=== PATIENT | male | born 1970 | race Two or more races ===

== ENCOUNTER 2016-11-30 14:27 | Inpatient (IN) | payer OTHER ==
[2016-11-30 16:38] VITALS: BMI 19.3
[2016-11-30] MEDS ORDERED: MAGNESIUM HYDROX 2400MG/30ML ORAL SUSPENSION 30 ML CUP PO PRN (16:41)
[2016-11-30] MEDS ORDERED: P-EPHED 60MG/TRIPROLIDI 2.5MG TABLET PO PRN (16:41)
[2016-11-30] MEDS ORDERED: chlordiazePOXIDE HCL 25 MG CAPSULE PO ONE (16:41)
[2016-11-30] MEDS ORDERED: guaiFENesin/D-METHORPHAN HB 10 ML UNIT-DOSE CUPS PO PRN (16:41)
[2016-11-30] MEDS ORDERED: MENTHOL/PHENOL 1 EACH UD MM PRN (16:41)
[2016-11-30] MEDS ORDERED: MAG HYDROX/AL HYDROX/SIMETH 30 ML UNIT-DOSE CUP PO PRN (16:41)
[2016-11-30] MEDS ORDERED: MAGNESIUM CITRATE 300 ML BOTTLE PO PRN (16:41)
[2016-11-30] MEDS ORDERED: LOPERAMIDE HCL 2 MG CAPSULE PO PRN (16:41)
[2016-11-30] MEDS ORDERED: IBUPROFEN 400 MG TABLET (FP) PO PRN (16:41)
[2016-11-30] MEDS ORDERED: ACETAMINOPHEN 325 MG TABLET (FP) PO PRN (16:41)
[2016-11-30] MEDS ORDERED: ALBUTEROL SO4 6.7 GM HFA INHALER IH PRN (16:43)
[2016-11-30] MEDS ORDERED: ONDANSETRON *ODT* 4 MG TABLET SL PRN (16:47)
--- NOTE | 2016-11-30 16:51 | HP ---
CIWA Score - CIWA Score Nausea/Vomitin Muscle Tremors: 4-Moderate,w/Arms Extend Anxiety: 4-Mod. Anxious/Guarded Agitation: 4-Moderately Restless Paroxysmal Sweats: 3 Orientation: 1-Uncertain about Date Tacttile Disturbances: 0-None Auditory Disturbances: 0-None Visual Disturbances: 0-None Headache: 0-None Present CIWA-Ar Total Score: 19 Admission ROS BHS - HPI Chief Complaint: Withdrawal sx. Allergies/Adverse Reactions: Allergies Allergy/AdvReac Type Severity Reaction Status Date / Time No Known Allergies Allergy Verified 11/30/16 16:27 History of Present Illness: 46 y/o man with a long hx. of alcoholism is admitted for detox. Pt. was here in February 2016,he was transferred to med/surg because of acute pancreatitis and transamitis. Exam Limitations: No Limitations - Ebola screening Have you traveled outside of the country in the last 21 days: No Have you had contact with anyone from an Ebola affected area: No Have you been sick,other than usual withdrawal symptoms: No Do you have a fever: No - Review of Systems Constitutional: Diaphoresis EENT: reports: No Symptoms Reported Respiratory: reports: No Symptoms reported Cardiac: reports: No Symptoms Reported GI: reports: Nausea, Abdominal cramping : reports: No Symptoms Reported Musculoskeletal: reports: No Symptoms Reported Integumentary: reports: Sweating Neuro: reports: Tremors, Other (black-outs) Endocrine: reports: No Symptoms Reported Hematology: reports: No Symptoms Reported Psychiatric: reports: No Sypmtoms Reported Other Systems: Reviewed and Negative Patient History - Patient Medical History Hx Anemia: No Hx Asthma: Yes Hx Chronic Obstructive Pulmonary Disease (COPD): No Hx Cancer: No Hx Cardiac Disorders: No Hx Congestive Heart Failure: No Hx Hypertension: No Hx Hypercholesterolemia: No Hx Pacemaker: No HX Cerebrovascular Accident: No Hx Seizures: No Hx Dementia: No Hx Diabetes: No Hx Gastrointestinal Disorders: No Hx Liver Disease: No Hx Genitourinary Disorders: No Hx Sexually Transmitted Disorders: No Hx Renal Disease (ESRD): No Hx Thyroid Disease: No Hx Human Immunodeficiency Virus (HIV): No Hx Hepatitis C: No Hx Depression: No Hx Suicide Attempt: No Hx Bipolar Disorder: No Hx Schizophrenia: No - Patient Surgical History Past Surgical History: No Anesthesia Reaction: No - PPD History Previous Implant?: Yes Documented Results: Negative w/o proof Date: 02/17/16 PPD to be Administered?: Yes - Smoking Cessation Smoking history: Former smoker Have you smoked in the past 12 months: No Aproximately how many cigarettes per day: 0 If you are a former smoker, when did you quit?: 2006 Cigars Per Day: 0 Hx Chewing Tobacco Use: No Initiated information on smoking cessation: No - Substance & Tx. History Hx Alcohol Use: Yes Hx Substance Use: Yes Substance Use Type: Alcohol, Marijuana Hx Substance Use Treatment: Yes (detox) - Substances Abused Alcohol Route: Oral Frequency: Daily Amount used: LIQUOR- 4 PINTS, BEER- 2 40oz Age of first use: 16 Date of Last Use: 11/30/16 Marijuana/Hashish Route: Smoking Frequency: Daily Amount used: 1 blunt Age of first use: 10 Date of Last Use: 11/29/16 Family Disease History - Family Disease History Family Disease History: Respiratory: Mother (asthma ) Admission Physical Exam [facility] - Vital Signs Vital Signs: Vital Signs - 24 hr 11/30/16 16:19 Temperature 96.3 F L Pulse Rate 66 Respiratory 18 Rate Blood Pressure 125/83 - Physical General Appearance: Yes: Alcohol on Breath, Tremorous, Irritable, Sweating, Anxious HEENTM: Yes: Within Normal Limits Respiratory: Yes: Chest Non-Tender, Lungs Clear, Normal Breath Sounds Neck: Yes: Supple Breast: Yes: Breast Exam Deferred Cardiology: Yes: Regular Rhythm, Regular Rate, S1, S2 Abdominal: Yes: Normal Bowel Sounds, Non Tender, Soft Genitourinary: Yes: Within Normal Limits Back: Yes: Within Normal Limits Musculoskeletal: Yes: Within Normal Limits Extremities: Yes: Tremors Neurological: Yes: Fully Oriented, Alert Integumentary: Yes: Diaphoresis Lymphatic: Yes: Within Normal Limits - Diagnostic (1) Alcohol dependence with uncomplicated withdrawal Current Visit: Yes Status: Acute (2) Asthma Current Visit: Yes Status: Chronic Qualifiers: Asthma severity: mild intermittent Asthma complication type: uncomplicated Qualified Code(s): J45.20 - Mild intermittent asthma, uncomplicated (3) Opioid dependence on agonist therapy Current Visit: Yes Status: Acute Cleared for Admission [facility] - Detox or Rehab [facility] Level of Care: Medically Managed Detox Regimen/Protocol: Librium [facility] Breath Alcohol Content Breath Alcohol Content: 0.319 Urine Drug Screen - Results Drug Screen Negative: No Urine Drug Screen Results: THC-Marijuana, MTD-Methadone
[2016-11-30] MEDS: chlordiazePOXIDE HCL 25 MG CAPSULE PO SCH ×2 (18:14→22:41)
[2016-11-30] MEDS: THIAMINE HCL 100 MG TABLET (FP) PO SCH (22:41)
[2016-11-30] MEDS: diphenhydrAMINE HCL 50 MG CAPSULE PO PRN (22:41)
[2016-12-01] MEDS: chlordiazePOXIDE HCL 25 MG CAPSULE PO SCH ×4 (05:32→22:20)
[2016-12-01] MEDS: METHADONE HCL 40 MG DISPERSABLE TABLET PO SCH (05:32)
[2016-12-01] MEDS: chlordiazePOXIDE HCL 25 MG CAPSULE PO PRN ×2 (08:30→13:35)
--- NOTE | 2016-12-01 08:59 | PN ---
[facility] CIWA - CIWA Score Nausea/Vomitin Muscle Tremors: 4-Moderate,w/Arms Extend Anxiety: 4-Mod. Anxious/Guarded Agitation: 4-Moderately Restless Paroxysmal Sweats: 3 Orientation: 1-Uncertain about Date Tacttile Disturbances: 0-None Auditory Disturbances: 0-None Visual Disturbances: 0-None Headache: 0-None Present CIWA-Ar Total Score: 21 BHS Progress Note (SOAP) Subjective: Nausea,vomiting,anxiety,restless,interrupted sleep,tremors Objective: 12/01/16 08:58 Vital Signs - 8 hr 12/01/16 12/01/16 03:37 06:33 Temperature 96.9 F L Pulse Rate 65 96 H Respiratory 18 Rate Blood Pressure 146/99 Assessment: 12/01/16 08:59 Withdrawal sx. Plan: Continue detox
[2016-12-01] MEDS: PRENATAL VITAMINS W/ FOLIC ACID TABLET (FP) PO SCH (10:20)
[2016-12-01 10:46] LABS: MCH 28.3 pg (25.7-33.7); MCHC 33.3 g/dl (32.0-35.9); MEAN PLT VOLUME 9.5 fl (7.5-11.1); PLATELET COUNT 95 K/MM3 (134-434); RDW 18.4 % (11.9-15.9); WHITE BLOOD COUNT 4.4 K/mm3 (4.0-10.0)
[2016-12-01 11:05] LABS: ALBUMIN 3.3 g/dl (3.4-5.0); ANION GAP 10 (8-16); CALCIUM 8.6 mg/dL (8.5-10.1); CO2 30 mmol/L (21-32); CREATININE 0.6 mg/dL (0.7-1.3); GLUCOSE,RANDOM 93 mg/dL (74-106); SGPT/ALT 88 U/L (12-78)
[2016-12-01 11:10] LABS: ALK PHOS 241 U/L (45-117); BILIRUBIN,TOTAL 0.3 mg/dL (0.2-1.0); SGOT/AST 164 U/L (15-37); TOT PROT 7.8 g/dl (6.4-8.2)
[2016-12-01 14:12] LABS: URINE APPEARANCE CLEAR; URINE BILIRUBIN NEGATIVE (NEGATIVE); URINE BLOOD NEGATIVE (NEGATIVE); URINE COLOR LTYELLOW; URINE GLUCOSE (UA) NEGATIVE (NEGATIVE); URINE KETONE NEGATIVE (NEGATIVE); URINE LEUK ESTERASE NEGATIVE (NEGATIVE); URINE NITRITE NEGATIVE (NEGATIVE); URINE PROTEIN NEGATIVE (NEGATIVE); URINE UROBILINOGEN NEGATIVE E.U./dl (0.2-1.0)
[2016-12-01] MEDS: THIAMINE HCL 100 MG TABLET (FP) PO SCH (22:20)
--- NOTE | 2016-12-01 22:31 | EKG ---
Test Reason : Blood Pressure : / mmHG Vent. Rate : 060 BPM Atrial Rate : 060 BPM P-R Int : 136 ms QRS Dur : 100 ms QT Int : 448 ms P-R-T Axes : 032 071 075 degrees QTc Int : 448 ms NORMAL SINUS RHYTHM VOLTAGE CRITERIA FOR LEFT VENTRICULAR HYPERTROPHY ABNORMAL ECG WHEN COMPARED WITH ECG OF 16-FEB-2016 14:23, NO SIGNIFICANT CHANGE WAS FOUND Confirmed by RIMA WARNER MD ([id number]) on 12/01/2016 10:30:52 PM Referred By: Confirmed By:RIMA WARNER MD
[2016-12-02] MEDS: hydrOXYzine PAMOATE 50 MG CAPSULE (FP) PO PRN (02:26)
[2016-12-02] MEDS: chlordiazePOXIDE HCL 25 MG CAPSULE PO SCH ×2 (05:17→10:28)
[2016-12-02] MEDS: METHADONE HCL 40 MG DISPERSABLE TABLET PO SCH (05:17)
[2016-12-02] MEDS: PRENATAL VITAMINS W/ FOLIC ACID TABLET (FP) PO SCH (10:27)
--- NOTE | 2016-12-02 12:36 | PN ---
[facility] CIWA - CIWA Score Nausea/Vomitin-No Nausea/No Vomiting Muscle Tremors: 4-Moderate,w/Arms Extend Anxiety: 4-Mod. Anxious/Guarded Agitation: 3 Paroxysmal Sweats: 3 Orientation: 0-Oriented Tacttile Disturbances: 0-None Auditory Disturbances: 0-None Visual Disturbances: 0-None Headache: 0-None Present CIWA-Ar Total Score: 14 BHS Progress Note (SOAP) Subjective: Anxiety,tremors,sweating,interrupted sleep,restless Objective: 12/02/16 12:34 Vital Signs - 8 hr 12/02/16 12/02/16 06:22 10:43 Temperature 97.8 F 98.2 F Pulse Rate 92 H 120 H Respiratory 18 20 Rate Blood Pressure 138/98 117/80 Laboratory Tests 12/01/16 12/01/16 12/01/16 07:30 07:30 07:30 WBC 4.4 D RBC 4.15 Hgb 11.7 Hct 35.3 L MCV 85.0 MCHC 33.3 RDW 18.4 H Plt Count 95 L D MPV 9.5 Sodium 138 Potassium 4.3 Chloride 98 Carbon Dioxide 30 Anion Gap 10 BUN 15 D Creatinine 0.6 L D Creat Clearance w eGFR > 60 Random Glucose 93 Calcium 8.6 Total Bilirubin 0.3 D AST 164 H D ALT 88 H D Alkaline Phosphatase 241 H D Total Protein 7.8 Albumin 3.3 L Urine Color Urine Appearance Urine pH Ur Specific [place] Urine Protein Urine Glucose (UA) Urine Ketones Urine Blood Urine Nitrite Urine Bilirubin Urine Urobilinogen Ur Leukocyte Esterase RPR Titer Nonreactive 12/01/16 11:41 WBC RBC Hgb Hct MCV MCHC RDW Plt Count MPV Sodium Potassium Chloride Carbon Dioxide Anion Gap BUN Creatinine Creat Clearance w eGFR Random Glucose Calcium Total Bilirubin AST ALT Alkaline Phosphatase Total Protein Albumin Urine Color Ltyellow Urine Appearance Clear Urine pH 8.0 Ur Specific [place] 1.016 Urine Protein Negative Urine Glucose (UA) Negative Urine Ketones Negative Urine Blood Negative Urine Nitrite Negative Urine Bilirubin Negative Urine Urobilinogen Negative Ur Leukocyte Esterase Negative RPR Titer Labs Noted Assessment: 12/02/16 12:35 Withdrawal sx. Plan: Continue detox
[2016-12-02] MEDS: chlordiazePOXIDE 5 MG CAPSULE PO SCH ×2 (17:24→22:42)
[2016-12-02] MEDS: diphenhydrAMINE HCL 50 MG CAPSULE PO PRN (22:42)
[2016-12-02] MEDS: THIAMINE HCL 100 MG TABLET (FP) PO SCH (22:42)
[2016-12-03] MEDS ORDERED: CYCLOBENZAPRINE HCL 10 MG TABLET (FP) PO PRN (00:50)
[2016-12-03] MEDS: hydrOXYzine PAMOATE 50 MG CAPSULE (FP) PO PRN (01:29)
[2016-12-03] MEDS: chlordiazePOXIDE 5 MG CAPSULE PO SCH ×2 (05:27→10:39)
[2016-12-03] MEDS: METHADONE HCL 40 MG DISPERSABLE TABLET PO SCH (05:27)
[2016-12-03] MEDS: PRENATAL VITAMINS W/ FOLIC ACID TABLET (FP) PO SCH (10:39)
--- NOTE | 2016-12-03 11:08 | PN ---
BHS Progress Note (SOAP) Subjective: ANXIETY,IRRITABILITY,SWEATS/COLD CHILLS,FATIGUE. Objective: 12/03/16 11:07 Vital Signs Temperature 96.8 F L 12/03/16 09:38 Pulse Rate 100 H 12/03/16 09:38 Respiratory Rate 19 12/03/16 09:38 Blood Pressure 93/67 12/03/16 09:38 O2 Sat by Pulse Oximetry (%) Laboratory Last Values WBC 4.4 K/mm3 (4.0-10.0) D 12/01/16 07:30 RBC 4.15 M/mm3 (4.00-5.60) 12/01/16 07:30 Hgb 11.7 GM/dL (11.7-16.9) 12/01/16 07:30 Hct 35.3 % (35.4-49) L 12/01/16 07:30 MCV 85.0 fl (80-96) 12/01/16 07:30 MCHC 33.3 g/dl (32.0-35.9) 12/01/16 07:30 RDW 18.4 % (11.9-15.9) H 12/01/16 07:30 Plt Count 95 K/MM3 (134-434) L D 12/01/16 07:30 MPV 9.5 fl (7.5-11.1) 12/01/16 07:30 Sodium 138 mmol/L (136-145) 12/01/16 07:30 Potassium 4.3 mmol/L (3.5-5.1) 12/01/16 07:30 Chloride 98 mmol/L (98-107) 12/01/16 07:30 Carbon Dioxide 30 mmol/L (21-32) 12/01/16 07:30 Anion Gap 10 (8-16) 12/01/16 07:30 BUN 15 mg/dL (7-18) D 12/01/16 07:30 Creatinine 0.6 mg/dL (0.7-1.3) L D 12/01/16 07:30 Creat Clearance w eGFR > 60 (>60) 12/01/16 07:30 Random Glucose 93 mg/dL (74-106) 12/01/16 07:30 Calcium 8.6 mg/dL (8.5-10.1) 12/01/16 07:30 Total Bilirubin 0.3 mg/dL (0.2-1.0) D 12/01/16 07:30 AST 164 U/L (15-37) H D 12/01/16 07:30 ALT 88 U/L (12-78) H D 12/01/16 07:30 Alkaline Phosphatase 241 U/L (45-117) H D 12/01/16 07:30 Total Protein 7.8 g/dl (6.4-8.2) 12/01/16 07:30 Albumin 3.3 g/dl (3.4-5.0) L 12/01/16 07:30 Urine Color Ltyellow 12/01/16 11:41 Urine Appearance Clear 12/01/16 11:41 Urine pH 8.0 (5.0-8.0) 12/01/16 11:41 Ur Specific Roland 1.016 (1.001-1.035) 12/01/16 11:41 Urine Protein Negative (NEGATIVE) 12/01/16 11:41 Urine Glucose (UA) Negative (NEGATIVE) 12/01/16 11:41 Urine Ketones Negative (NEGATIVE) 12/01/16 11:41 Urine Blood Negative (NEGATIVE) 12/01/16 11:41 Urine Nitrite Negative (NEGATIVE) 12/01/16 11:41 Urine Bilirubin Negative (NEGATIVE) 12/01/16 11:41 Urine Urobilinogen Negative E.U./dl (0.2-1.0) 12/01/16 11:41 Ur Leukocyte Esterase Negative (NEGATIVE) 12/01/16 11:41 RPR Titer Nonreactive (NONREACTIVE) 12/01/16 07:30 Assessment: 12/03/16 11:07 WITHDRAWAL SX Plan: CONTINUE DETOX
[2016-12-03] MEDS: chlordiazePOXIDE HCL 10 MG CAPSULE PO SCH ×2 (17:26→22:38)
[2016-12-03] MEDS: diphenhydrAMINE HCL 50 MG CAPSULE PO PRN (22:38)
[2016-12-03] MEDS: THIAMINE HCL 100 MG TABLET (FP) PO SCH (22:38)
[2016-12-04] MEDS: METHADONE HCL 40 MG DISPERSABLE TABLET PO SCH (05:40)
[2016-12-04] MEDS: chlordiazePOXIDE HCL 10 MG CAPSULE PO SCH (05:40)
[2016-12-04 09:02] VITALS: BP 108/77; PULSE 103; TEMP 97
--- NOTE | 2016-12-04 12:10 | DS ---
[facility] Detox Discharge Summary Admission Date: 11/30/16 Discharge Date: 12/04/16 - History Present History: Alcohol Dependence, Cannabis Dependence, MMTP Additional Comments: DETOX COMPLETED. ALERT O X 3. NAD. Pertinent Past History: ASTHMA - Physical Exam Results Vital Signs: Vital Signs Temperature 97.0 F L 12/04/16 09:01 Pulse Rate 103 H 12/04/16 09:01 Respiratory Rate 20 12/04/16 09:01 Blood Pressure 108/77 12/04/16 09:01 O2 Sat by Pulse Oximetry (%) Pertinent Admission Physical Exam Findings: WITHDRAWAL SX - Treatment Hospital Course: Detox Protocol Followed, Detoxed Safely, Responded well, Discharged Condition Good, Rehab Referral Accepted Patient has Accepted a Rehab Referral to: [facility]. - Medication Discharge Medications: Ambulatory Orders Albuterol Sulfate Inhaler - [Ventolin HFA Inhaler -] 2 inh PO Q4H 08/22/14 - Diagnosis (1) Alcohol dependence with uncomplicated withdrawal Status: Acute (2) Asthma Status: Chronic Qualifiers: Asthma severity: mild intermittent Asthma complication type: uncomplicated Qualified Code(s): J45.20 - Mild intermittent asthma, uncomplicated (3) Cannabis dependence, uncomplicated Status: Acute - AMA Did Patient Leave Against Medical Advice: No
== END 2016-12-04 09:25 | disposition home or self-care (01) | DRG 773 ==
LOC: YASAS 14:27 → Y3N 16:38
PROVIDERS: ADMIT Internal Medicine; ATTEND Internal Medicine
PROC: HZ2ZZZZ Detoxification Services for Substance Abuse Treatment (ICD-10-PCS; principal; 2016-12-03)
DX: F10.230 Alcohol dependence with withdrawal, uncomplicated (principal); F11.20 Opioid dependence, uncomplicated; F12.10 Cannabis abuse, uncomplicated; J45.20 Mild intermittent asthma, uncomplicated; Z87.891 Personal history of nicotine dependence
CPT/HCPCS: 36415; 80053; 81003; 85027; 86593; 93005; 93010